=== PATIENT | female | born 1965 | race Caucasian/White ===

== ENCOUNTER 2019-05-18 08:00 | Inpatient (IN) ==
--- NOTE | 2019-04-15 09:07 | ANES ---
Anesthesia Pre Procedure Eval HOME MEDICATIONS Calcium Crb,Cit/D3/Min34/Hermila [Citracal + Bone Density Tablet] 1 ea PO DAILY 05/15/17 [Last Taken Unknown] Cholecalciferol (Vitamin D3) [Vitamin D3] 1,000 unit PO DAILY 05/15/17 [Last Taken Unknown] Citalopram Hydrobromide [Celexa] 20 mg PO DAILY 05/15/17 [Last Taken Unknown] Clonidine HCl [Catapres] 0.1 mg PO DAILY 05/15/17 [Last Taken Unknown] Fexofenadine/Pseudoephedrine [Nicolle-D 24 Hour Tablet] 1 ea PO DAILY 05/15/17 [Last Taken Unknown] Levothyroxine Sodium [Synthroid] 175 mcg PO DAILY 05/15/17 [Last Taken Unknown] Liothyronine Sodium 20 mcg PO DAILY 05/15/17 [Last Taken Unknown] Multivitamins [Multivitamin Genevieve] 1 cap PO DAILY 05/15/17 [Last Taken Unknown] Allergies/Adverse Reactions: Allergies Allergy/AdvReac Type Severity Reaction Status Date / Time house dust Allergy sinus Verified 04/15/19 08:32 drainage Influenza Virus Vaccines Allergy face Verified 04/15/19 08:32 swelling pollen extracts Allergy sinus Verified 04/15/19 08:32 drainage thimerosal Allergy face Verified 04/15/19 08:32 swelling - Planned Procedure Planned Procedure: LT Arthroplasty Total Knee Medication List Reviewed:: Yes Allergies Verified: Yes Medical History (Last Reviewed 04/15/19 @ 09:06 by Nathan Cunningham CRNA) Osteoarthritis of knee (Chronic) Hypertension Onset Date: Unknown Osteoporosis Onset Date: Unknown Seasonal allergies Onset Date: Unknown Thyroid disease Onset Date: Unknown Vitamin D deficiency Onset Date: Unknown Surgical History (Last Reviewed 04/15/19 @ 09:06 by Nathan Cunningham CRNA) Hx jeremy AGUIRRE History of cholecystectomy Onset Date: 1985 open History of colonoscopy Onset Date: 05/31/17 Tommeraasen-diverticulum of sigmoid colon. Recheck 10 yrs. History of endometrial ablation Onset Date: 2005 History of gastric surgery Onset Date: 2014 vertical gastric sleeve History of shoulder surgery Onset Date: Unknown left History of thyroidectomy Onset Date: 2007 full Family History (Last Reviewed 04/15/19 @ 09:06 by Nathan Cunningham CRNA) Mother Alive and well Father , age 78 Cancer lung mesothelioma Brother Alive and well Brother Alive and well - Family Anesthesia History Family History:: no untoward family reactions to anesthesia, no familial bleeding tendencies, no family history of clotting disorders, no family history of premature - Airway/Neck/Teeth Within Normal Limits:: Yes Teeth Condition: intact Mallampatti Score: 1 Thyromental (T-M) distance: > 6 cm Mandibulo Hyoid distance: > 3 cm - Respiratory Smoking Status: Never smoker Discussed smoking cessation including day of surgery: No Sleep Apnea currently treated: No Sleep Apnea by current assessment: No Discussed Risks/Treatment of LINA: No - Cardiovascular Tolerate Activity: Good Heart Sounds: S1 & S2, Regular - Anesthesia Assessment and Plan ASA Class: PS, II Anesthesia Type Plan: Block - Ultrasound guided adductor canal nerve block for postop analgesia, Spinal
[~2019-05-18 08:00] MED LIST: MORPHINE SULFATE 15 MG TABLET.SA PO PRN; ROPIVACAINE HCL/PF 100 MG, EPINEPHrine 0.2 MG, KETOROLAC TROMETHAMINE 30 MG in NORMAL S... IJ PRN; TRANEXAMIC ACID 1,000 MG in NORMAL SALINE 100 ML IV PRN; ceFAZolin SODIUM 1 GM VIAL IV PRN
[2019-05-18] MEDS ORDERED: ceFAZolin SODIUM 1 GM VIAL ONE (08:53)
[2019-05-18] MEDS: RINGER'S SOLUTION,LACTATED 1,000 ML IV PRN ×3 (09:11→11:50)
[2019-05-18] MEDS ORDERED: BUPIVACAINE HCL/PF 10 ML VIAL ONE (09:18)
[2019-05-18] MEDS ORDERED: MIDAZOLAM HCL/PF 5 MG/ML VIAL ONE (09:18)
[2019-05-18] MEDS ORDERED: BUPIVACAINE HCL/EPINEPHRINE 50 ML VIAL IJ ONE (09:19)
[2019-05-18] MEDS ORDERED: PROPOFOL VIAL IV ONE (09:19)
[2019-05-18] MEDS ORDERED: NORMAL SALINE 20 ML VIAL ONE (09:26)
--- NOTE | 2019-05-18 11:37 | ANES ---
Anesthesia Procedure Note Procedure Note: ANESTHESIA PROCEDURE NOTE Date of procedure: 05/18/2019. Time of procedure: 1035. Performed by: Sylvain Mace CRNA Tin Assorter: Mandie Franklin RN . Preprocedure diagnosis: Left knee DJD. Post procedure diagnosis: Same. Procedure: Postoperative analgesia following left total knee arthroplasty Indications: Postoperative analgesia. Findings: Patient was brought to operating room #2, sedated and given a spinal anesthetic. Patient was then placed in a supine position. Patient's left inner thigh was prepped with ChloraPrep. Ultrasound was utilized to identify the adductor canal. 20-gauge 4 inch regional block needle was advanced under ultrasound guidance until tip of needle was positioned in the adductor canal. Tip of needle just distal to fascial layer of the sartorius muscle. 25 mL of 0.25% Marcaine with epinephrine 1-200,000 was injected with adequate spread of local anesthesia noted. Regional block needle was removed intact. EBL: Minimal. Fluids: N/A. Specimen: N/A. Post procedure condition: The patient tolerated the procedure well. No complications were noted. Thank you for this consultation Sylvain Mace CRNA
[2019-05-18] MEDS ORDERED: ZOLPIDEM TARTRATE 5 MG TABLET PO PRN (12:34)
[2019-05-18] MEDS ORDERED: diphenhydrAMINE HCL 50 MG/ML VIAL IV PRN (12:34)
[2019-05-18] MEDS ORDERED: MAG HYDROX/ALUMINUM HYD/SIMETH 30 ML UDC PO PRN (12:34)
[2019-05-18] MEDS ORDERED: ACETAMINOPHEN 500 MG TABLET PO PRN (12:34)
[2019-05-18] MEDS ORDERED: MAGNESIUM HYDROXIDE 30 ML UDC PO PRN (12:34)
--- NOTE | 2019-05-18 12:34 | OR ---
Operative Report - Dictated Report Narrative: Date: 05/18/2019 Preoperative diagnosis: Left knee degenerative joint disease. Postoperative diagnosis: Left knee degenerative joint disease. Procedure: Left total knee arthroplasty. Surgeon: Tano Bernal M.D. Lead Application Architect: Ricky Mills PA-C (provided and essential set of skilled, educated hands that assisted with transfer, positioning, prepping, draping, manipulation, retraction, placement of jigs, injection, insertion of implants, irrigation, closure wounds, and dressings all of which could not be performed by the available surgical crew) Anesthesia: Spinal with regional block and local periarticular joint injection. Complications: None Specimens: Bone. Estimated blood loss: Minimal. Tourniquet time: 95 Minutes at 300 millimeters of mercury. Retained implants: Depuy Attune size 6 narrow left lugged cemented posterior stabilized femoral component. Size 5 fixed-bearing cemented tibial platform. 6 by 5 millimeter posterior stabilized cross-linked tibial insert. 38 millimeter medialized patella button. Indications: Mrs. Thakkar is a 54-year-old female who has had longstanding bilateral knee pain and arthrosis. She is here today for first of 2 total knee arthroplasties on the left today. This patient was followed in my clinic for period of time with significant complaints of left knee pain consistent with arthritic changes. She had failed conservative measures including, but not limited to, activity modification, passage of time, medications, and other conservative measures. Patient wished to proceed with surgical treatment. The risks, benefits, and alternatives were discussed in clinic. The risks of , blood clots, bleeding, infection, nerve/tendon blood vessel/ injury, malposition of components, intraoperative fracture, postoperative limited range of motion, persistent pain, failure of components, and need for additional procedures. Patient wished to proceed consent was obtained after answering all questions. Procedure: After marking the correct extremity on the floor, the patient was taken to the operating room. A timeout was performed. IV antibiotics consisting of Ancef were administered prior to the procedure. A regional followed by spinal anesthetic was induced by anesthesia, per my request, on the operative table with all bony prominences well-padded. Torres catheter was placed, and a bump was placed under the operative side buttock. SCDs and JUAREZ hose were utilized on the nonoperative leg. A well-padded tourniquet was applied to the operative thigh. The operative leg was then pre-scrubbed with alcohol, prepped, and draped in a standard sterile fashion. After exsanguinating the extremity with an Esmarch bandage, the tourniquet was inflated. After marking out the anterior knee for standard incision centered over the patella, the skin was incised and dissected down to the joint retinaculum. The joint retinaculum was marked out as well as the horizontal axis of the patella, and a standard medial parapatellar arthrotomy was then made. The most proximal aspect of the quadriceps tendon and the patella tendon insertion were protected from release. A partial synovectomy was performed as well as a resection of the infrapatellar fat pad. The distal femoral fat pad proximal to the trochlea was also resected using cautery. The soft tissues were elevated off the medial aspect of the proximal tibia using a Peacock elevator ensuring that we did not transect the medial collateral ligament. Upon initial evaluation range of motion was approximately 10 degrees to 110 degrees of flexion. There were signs of advanced arthrosis in the medial, lateral, and patellofemoral joint spaces. There were large marginal osteophytes which were removed with a rongeur. The knee was hyperflexed and the patella was tucked laterally. Protecting the surrounding soft tissues with Homans, an entry drill was placed down the femoral canal using Whitesides line for guidance into the entry point. The intramedullary femoral alignment gonzalo was utilized in order to cut the distal femur in 5 degrees of valgus resecting 10 millimeters of bone. Next the distal femur was sized to a size 6. A posterior referencing guide was utilized to place the distal femoral cutting block in 3 degrees of external rotation. This was pinned into place. The rotation was confirmed both visually and based on anatomic landmarks. The 4 in 1 cutting jig of the appropriate size was utilized in order to make all bony cuts. The mar wing was used to ensure no notching. Retractors were utilized in order to protect surrounding soft tissues. This cut did not result in any excessive notching. We then cut the box centered over the distal femur. This allowed for resection of the anterior and posterior cruciate ligaments. I then turned my attention to the preparation of the tibia. Using an extra medullary tibial alignment gonzalo, 5 millimeters of bone was resected off the medial articular surface. This was made perpendicular to the mechanical axis of the joint with the alignment gonzalo centered over the ankle mortise. The alignment gonzalo was checked and was noted to be parallel to the mechanical axis, centered over the medial one third of the tibial tubercle, paralleling the anterior surface of the tibia. We then turned our attention to the remaining meniscus and soft tissues. These were removed while protecting the surrounding ligaments and soft tissues. The marginal osteophytes off the anterior, posterior, medial, lateral aspects of the femur and tibia were removed. The tibia was sized out to a size 5. Next the tibia was drilled and punched in an externally rotated position. Next the trial femur and a series of tibial inserts were utilized in order to allow for full extension and maximal flexion. It was found that a 5 millimeter insert gave the best range of motion and stability at multiple flexion points as well as at full extension there was less than 2 mm of gapping both medially and laterally. There is minimal anterior translation with the knee at 90 degrees of flexion and no signs of being able to dislocate the knee. The patella was then prepared. The initial thickness was 21 millimeters. This was reamed down to 12 millimeters parallel to the anterior surface of the patella. It was sized out to a size 38 medialized patella button. This was then drilled and trialed. Without any medial restraint the patella tracked appropriately and did not sublux or dislocate. At this point, it was felt these were the appropriate sized implants, and all trials were removed. The standard periarticular joint injection consisting of ropivacaine, Toradol, and epinephrine were injected into the periarticular joint tissues. The bony surfaces were thoroughly irrigated with a pulsatile-suction saline irrigation device. A bone plug from the prior resected anterior chamfer cut was placed into the drill hole at the distal femur. The bony surfaces were then dried in preparation for placement of the implants. The cement was vacuum mixed per the deputy county attorney's instructions. The cement was placed on the dry bony surfaces and posterior aspect of the implants. The implants were impacted into place, removing all extruded cement. At this point anesthesia administered tranexamic acid per protocol intravenously. The knee was placed in extension with axial loading with the trial insert while the cement cured. Once the cement cured, all remaining extruded cement was removed. The knee was placed through a range of motion with the trial insert to ensure appropriate range of motion and stability. Final range of motion was approximately 0 to 120 degrees. The knee was again thoroughly irrigated with pulsatile saline lavage. The final polyethylene insert was then impacted into place ensuring no retained soft tissues. The remaining periarticular joint injection was injected. A medium Hemovac drain was placed exiting superior laterally. The knee was then placed over a triangle and the arthrotomy was closed with interrupted #1 Vicryl after thoroughly irrigating the joint. The deep and subcutaneous tissues were closed with interrupted 0 and 3-0 Vicryl respectively. Skin was closed with a running subcutaneous 3-0 Monocryl and Prineo Dermabond dressing. 4 x 4's, Sof-Rol, and a full leg Wilton wrap were applied. All sponge, needle, blade, and instrument counts were correct prior to closing the wounds. Postoperative condition: The patient was awoken and transferred to the postanesthesia care unit in stable condition. Plan is to be admitted to the inpatient medical/surgical floor postoperatively for 24 hours of IV antibiotics, physical therapy, occupational therapy, and medical comanagement. Patient will be weightbearing as tolerated with range of motion as tolerated. DVT prophylaxis will be with SCDs, JUAREZ hose, and pharmacological anticoagulation. Anticipated hospital stay is approximately 1-3 days.
[2019-05-18] MEDS ORDERED: DEXTROSE 5%-LACTATED RINGERS 1,000 ML IV PRN (12:35)
--- NOTE | 2019-05-18 12:49 | ANES ---
Post Anesthesia Discharge - Transfer of Care Transfer of Care handoff given to nurse: Yes - Discharge from PACU Discharge from PACU when meets criteria: Yes - Awake and comfortable.
--- NOTE | 2019-05-18 13:08 | ANES ---
Post Anesthesia Assessment - Vital Signs Vitals: Last Vital Signs Temp 36.8 C 05/18/19 13:00 Pulse 74 05/18/19 13:00 Resp 18 05/18/19 13:00 BP 118/62 05/18/19 13:00 Pulse Ox 99 05/18/19 13:00 Airway Patency: Normal - Mental Status Level Of Consciousness: Awake, Alert, Appropriate - Pain Level Pain Score: 0 - N/V Assessment Nausea/Vomiting Presence: None Dehydration:: No
[2019-05-18] MEDS: ONDANSETRON HCL/PF 2 MG/ML VIAL IV PRN ×2 (13:30→17:25)
[2019-05-18] MEDS: KETOROLAC TROMETHAMINE 15 MG/ML VIAL IV SCH ×2 (14:22→19:03)
[2019-05-18] MEDS: CEFAZOLIN SODIUM/DEXTROSE,ISO 1 GM/50 ML BAG IV SCH ×2 (14:23→20:48)
[2019-05-18] MEDS: oxyCODONE HCL/ACETAMINOPHEN 1 TAB TABLET PO PRN ×2 (16:32→20:47)
[2019-05-18] MEDS: SENNOSIDES/DOCUSATE SODIUM 1 TAB TABLET PO SCH (21:35)
[2019-05-18] MEDS: MORPHINE SULFATE 15 MG TABLET.SA PO SCH (21:35)
[2019-05-19] MEDS: KETOROLAC TROMETHAMINE 15 MG/ML VIAL IV SCH ×4 (01:03→17:49)
[2019-05-19] MEDS: oxyCODONE HCL/ACETAMINOPHEN 1 TAB TABLET PO PRN ×3 (01:03→09:24)
[2019-05-19] MEDS: ONDANSETRON HCL/PF 2 MG/ML VIAL IV PRN ×3 (01:11→09:24)
[2019-05-19] MEDS: CEFAZOLIN SODIUM/DEXTROSE,ISO 1 GM/50 ML BAG IV SCH (02:16)
[2019-05-19 06:30] LABS: Hematocrit 31.7 % (37.0-47.0); Hemoglobin 10.4 gm/dL (12.5-16.0); Mean Cell Volume 90.3 fl (78-100); Mean Corpuscular Hemoglobin 29.6 pg (27-31); Mean Corpuscular Hgb Conc 32.8 g/dl (32-36); Mean Platelet Volume 8.8 fl (8-12.5); Platelet Count 227 K/mm3 (150-450); Red Blood Count 3.51 M/mm3 (4.2-5.4); Red Cell Distribution Width 11.4 % (11.5-14.0); White Blood Count 6.4 K/mm3 (4.0-10.5)
[2019-05-19 06:37] LABS: Anion Gap 11.9 mmol/L (6.8-13.8); Calcium * 8.4 mg/dL (7.9-10.9); Carbon Dioxide 27.5 mmol/L (24-32.6); Potassium 3.4 mmol/L (3.4-4.6)
[2019-05-19] MEDS: LIOTHYRONINE SODIUM 5 MCG TABLET PO SCH ×3 (07:15→17:04)
[2019-05-19] MEDS: LEVOTHYROXINE SODIUM 175 MCG TABLET PO SCH (07:15)
--- NOTE | 2019-05-19 08:14 | PN ---
Subjective - Date and Time Seen Date: 05/19/19 Time: 08:11 Subjective Narrative: Subjective: Reports tolerable pain. She has not used her ice machine as it has not been cleared by materials yet. Was able to get around the room with therapy. Pain is well-controlled. Voiding without any complications. Tolerating by mouth intake. Denies any nausea or vomiting. Denies calf pain. Slept okay. Physical exam: Alert and oriented to person, place and time Left lower extremity: Palpable dorsalis pedis pulse. Sensation grossly intact to light touch. Dressings clean and dry. Able to flex and extend ankle and toes. No excessive drainage. Calf and thigh are soft and nontender. Assessment: Postop day 1 status post left total knee arthroplasty. Plan: Due to the need for pain control, post-operative limited mobility, protection of the surgical site and joint, monitoring of the wound, and the management of chronic medical conditions, she requires continued inpatient care. Continue with physical and occupational therapy weightbearing as tolerated. Continue with anticoagulation. 24 hours postoperative prophylactic antibiotics. Pain control with goal to rely on oral medications. Continue bowel regimen. Will need 6 weeks with walker or assitive device to protect joint while ambulating during the recovery process. Discharge planning. Discontinue drain and continue Torres catheter as she is undergoing surgical intervention tomorrow. She will be n.p.o. after midnight. Plan is for right total knee arthroplasty tomorrow. Objective - Vitals Vitals: Last Vital Signs Temp 36.4 C 05/19/19 06:00 Pulse 83 05/19/19 06:00 Resp 16 05/19/19 06:00 BP 122/87 05/19/19 06:00 Pulse Ox 96 05/19/19 06:00 - Abnormal Lab Findings Abnormal Lab Findings: Abnormal Lab Results 05/19/19 05/19/19 Range/Units 06:10 06:10 RBC 3.51 L (4.2-5.4) M/mm3 Hgb 10.4 L (12.5-16.0) gm/dL Hct 31.7 L (37.0-47.0) % RDW 11.4 L (11.5-14.0) % Random Glucose 117 H (70-110) mg/dL Cauti Physician Documentation - Urinary Catheter Management Urethral (Torres) Urethral Indwelling: Yes Reason for Continuing Indwelling Catheter: Surgical Procedure Date of Insertion: 05/18/19 Time of Insertion: 10:50 Assessment/Plan - Problems/Diagnosis (1) Status post total left knee replacement Problem: Acute (2) Acute blood loss anemia Problem: Acute (3) Hypertension Problem: Chronic Qualifiers: Hypertension type: essential hypertension Qualified Code(s): I10 - Essential (primary) hypertension (4) Hypothyroid Problem: Chronic Qualifiers: Hypothyroidism type: postoperative Qualified Code(s): E89.0 - Postprocedural hypothyroidism
[2019-05-19] MEDS ORDERED: ceFAZolin SODIUM 1 GM VIAL IV PRN (08:15)
[2019-05-19] MEDS: CITALOPRAM HYDROBROMIDE 20 MG TABLET PO SCH ×3 (09:08→20:31)
[2019-05-19] MEDS: CALCIUM CARBONATE/VITAMIN D3 1 TAB TABLET PO SCH (09:08)
[2019-05-19] MEDS: CLONIDINE HCL 0.1 MG TABLET PO SCH ×3 (09:08→20:31)
[2019-05-19] MEDS: MORPHINE SULFATE 15 MG TABLET.SA PO SCH ×2 (09:09→20:31)
[2019-05-19] MEDS: CHOLECALCIFEROL 1,000 UNIT CAPSULE PO SCH (09:09)
[2019-05-19] MEDS: MULTIVITAMINS 1 CAP CAPSULE PO SCH (09:24)
[2019-05-19] MEDS ORDERED: ENOXAPARIN SODIUM 40 MG/0.4 ML SYRG SC SCH (11:35)
[2019-05-19] MEDS: HYDROcodone/ACETAMINOPHEN 1 EACH TABLET PO PRN ×3 (13:45→22:04)
[2019-05-19] MEDS: SENNOSIDES/DOCUSATE SODIUM 1 TAB TABLET PO SCH (20:31)
[2019-05-20] MEDS: KETOROLAC TROMETHAMINE 15 MG/ML VIAL IV SCH ×2 (00:17→06:35)
[2019-05-20] MEDS: HYDROcodone/ACETAMINOPHEN 1 EACH TABLET PO PRN ×3 (02:28→20:17)
[2019-05-20] MEDS ORDERED: TRANEXAMIC ACID 1,000 MG in NORMAL SALINE 100 ML IV PRN (06:00)
[2019-05-20] MEDS ORDERED: ROPIVACAINE HCL/PF 100 MG, EPINEPHrine 0.2 MG, KETOROLAC TROMETHAMINE 30 MG in NORMAL S... IJ PRN (06:00)
[2019-05-20] MEDS ORDERED: ceFAZolin SODIUM 1 GM VIAL IV PRN (06:00)
[2019-05-20] MEDS ORDERED: MORPHINE SULFATE 15 MG TABLET.SA PO PRN (06:00)
--- NOTE | 2019-05-20 06:33 | ANES ---
Anesthesia Pre Procedure Eval Vitals/Labs: Last Vital Signs Temp 37.2 C 05/20/19 05:00 Pulse 84 05/20/19 05:00 Resp 16 05/20/19 05:00 BP 119/73 05/20/19 05:00 Pulse Ox 98 05/20/19 05:00 HOME MEDICATIONS Calcium Crb,Cit/D3/Min34/Hermila [Citracal + Bone Density Tablet] 1 ea PO DAILY 05/15/17 [Last Taken Unknown] Cholecalciferol (Vitamin D3) [Vitamin D3] 1,000 unit PO DAILY 05/15/17 [Last Taken Unknown] Citalopram Hydrobromide [Celexa] 20 mg PO DAILY 05/15/17 [Last Taken Unknown] Clonidine HCl [Catapres] 0.1 mg PO DAILY 05/15/17 [Last Taken Unknown] Fexofenadine/Pseudoephedrine [Nicolle-D 24 Hour Tablet] 1 ea PO DAILY 05/15/17 [Last Taken Unknown] Levothyroxine Sodium [Synthroid] 175 mcg PO DAILY 05/15/17 [Last Taken Unknown] Liothyronine Sodium 20 mcg PO DAILY 05/15/17 [Last Taken Unknown] Multivitamins [Multivitamin Genevieve] 1 cap PO DAILY 05/15/17 [Last Taken Unknown] Allergies/Adverse Reactions: Allergies Allergy/AdvReac Type Severity Reaction Status Date / Time house dust Allergy sinus Verified 05/18/19 08:44 drainage Influenza Virus Vaccines Allergy face Verified 05/18/19 08:44 swelling pollen extracts Allergy sinus Verified 05/18/19 08:44 drainage thimerosal Allergy face Verified 05/18/19 08:44 swelling - Planned Procedure Planned Procedure: LTK on 05/18/19 and RTK on 05/20/19 Medication List Reviewed:: Yes Allergies Verified: Yes Medical History (Last Reviewed 05/20/19 @ 06:31 by Noman Mace CRNA) Osteoarthritis of knee (Chronic) Hypertension Onset Date: Unknown Osteoporosis Onset Date: Unknown Seasonal allergies Onset Date: Unknown Thyroid disease Onset Date: Unknown Vitamin D deficiency Onset Date: Unknown Surgical History (Last Reviewed 05/20/19 @ 06:31 by Noman Mace CRNA) History of cholecystectomy Onset Date: 1985 open History of colonoscopy Onset Date: 05/31/17 Tommeraasen-diverticulum of sigmoid colon. Recheck 10 yrs. History of endometrial ablation Onset Date: 2005 History of gastric surgery Onset Date: 2014 vertical gastric sleeve History of shoulder surgery Onset Date: Unknown left History of thyroidectomy Onset Date: 2007 full Hx of CARLA Family History (Last Reviewed 05/20/19 @ 06:31 by Noman Mace CRNA) Mother Alive and well Father , age 78 Cancer lung mesothelioma Brother Alive and well Brother Alive and well - Family Anesthesia History Family History:: no untoward family reactions to anesthesia - Airway/Neck/Teeth Within Normal Limits:: Yes Teeth Condition: intact Neck Exam: full range of motion Mallampatti Score: 2 Thyromental (T-M) distance: > 6 cm Mandibulo Hyoid distance: > 3 cm - Respiratory Respiratory Physical: lungs clear Smoking Status: Never smoker Sleep Apnea currently treated: No Sleep Apnea by current assessment: No - Cardiovascular Cardiac History: hypertension Tolerate Activity: Good Heart Sounds: S1 & S2, Regular - Gastrointestinal NPO since: MN - Anesthesia Assessment and Plan ASA Class: PS, II Anesthesia Type Plan: Spinal - adductor canal block
[2019-05-20] MEDS: RINGER'S SOLUTION,LACTATED 1,000 ML IV PRN ×2 (06:35→09:00)
[2019-05-20] MEDS: LEVOTHYROXINE SODIUM 175 MCG TABLET PO SCH (06:36)
[2019-05-20] MEDS ORDERED: BUPIVACAINE HCL/EPINEPHRINE 50 ML VIAL IJ ONE (06:37)
[2019-05-20] MEDS ORDERED: LIDOCAINE HCL 20 ML VIAL ONE (06:37)
[2019-05-20] MEDS ORDERED: PROPOFOL VIAL IV ONE (06:38)
[2019-05-20] MEDS ORDERED: MIDAZOLAM HCL/PF 5 MG/ML VIAL ONE (06:38)
[2019-05-20] MEDS ORDERED: BUPIVACAINE HCL/PF 10 ML VIAL ONE (06:38)
[2019-05-20] MEDS: LIOTHYRONINE SODIUM 5 MCG TABLET PO SCH ×2 (06:39→17:08)
[2019-05-20] MEDS ORDERED: ISOPROPYL ALCOHOL 480 APPL BTL MC ONE (07:15)
[2019-05-20] MEDS ORDERED: ceFAZolin SODIUM 1 GM VIAL ONE (07:15)
[2019-05-20] MEDS: MORPHINE SULFATE 15 MG TABLET.SA PO SCH ×2 (09:12→21:29)
[2019-05-20] MEDS: MULTIVITAMINS 1 CAP CAPSULE PO SCH (09:12)
[2019-05-20] MEDS: CHOLECALCIFEROL 1,000 UNIT CAPSULE PO SCH (09:12)
[2019-05-20] MEDS: CALCIUM CARBONATE/VITAMIN D3 1 TAB TABLET PO SCH (09:12)
[2019-05-20] MEDS ORDERED: DEXTROSE 5%-LACTATED RINGERS 1,000 ML IV PRN (10:05)
--- NOTE | 2019-05-20 10:05 | OR ---
Operative Report - Dictated Report Narrative: Date: 05/20/2019 Preoperative diagnosis: Right knee degenerative joint disease. Postoperative diagnosis: Right knee degenerative joint disease. Procedure: Right total knee arthroplasty. Surgeon: Tano Bernal M.D. Magneto Repairer: Ricky Mills PA-C (provided and essential set of skilled, educated hands that assisted with transfer, positioning, prepping, draping, manipulation, retraction, placement of jigs, injection, insertion of implants, irrigation, closure wounds, and dressings all of which could not be performed by the available surgical crew) Anesthesia: Spinal with regional block and local periarticular joint injection. Complications: None Specimens: Bone. Estimated blood loss: Minimal. Tourniquet time: 105 Minutes at 300 millimeters of mercury. Retained implants: Depuy Attune size 5 right lugged cemented posterior stabilized femoral component. Size 5 fixed-bearing cemented tibial platform. 5 by 6 millimeter posterior stabilized cross-linked tibial insert. 38 millimeter medialized patella button. Indications: Mrs. Thakkar is a 54-year-old female who has had longstanding right knee pain and arthrosis. This patient was followed in my clinic for period of time with significant complaints of right knee pain consistent with arthritic changes. She had failed conservative measures including, but not limited to, activity modification, passage of time, medications, and other conservative measures. Patient wished to proceed with surgical treatment. The risks, benefits, and alternatives were discussed in clinic. The risks of , blood clots, bleeding, infection, nerve/tendon blood vessel/ injury, malposition of components, intraoperative fracture, postoperative limited range of motion, persistent pain, failure of components, and need for additional procedures. Patient wished to proceed consent was obtained after answering all questions. Procedure: After marking the correct extremity on the floor, the patient was taken to the operating room. A timeout was performed. IV antibiotics consisting of Ancef were administered prior to the procedure. A regional followed by spinal anesthetic was induced by anesthesia, per my request, on the operative table with all bony prominences well-padded. Torres catheter was already in place, and a bump was placed under the operative side buttock. SCDs and JUAREZ hose were utilized on the nonoperative leg. A well-padded tourniquet was applied to the operative thigh. The operative leg was then pre-scrubbed with alcohol, prepped, and draped in a standard sterile fashion. After exsanguinating the extremity with an Esmarch bandage, the tourniquet was inflated. After marking out the anterior knee for standard incision centered over the patella, the skin was incised and dissected down to the joint retinaculum. The joint retinaculum was marked out as well as the horizontal axis of the patella, and a standard medial parapatellar arthrotomy was then made. The most proximal aspect of the quadriceps tendon and the patella tendon insertion were protected from release. A partial synovectomy was performed as well as a resection of the infrapatellar fat pad. The distal femoral fat pad proximal to the trochlea was also resected using cautery. The soft tissues were elevated off the medial aspect of the proximal tibia using a Peacock elevator ensuring that we did not transect the medial collateral ligament. Upon initial evaluation range of motion was approximately 5 degrees to 120 degrees of flexion. There were signs of advanced arthrosis in the medial and patellofemoral greater than lateral joint spaces. There were large marginal osteophytes which were removed with a rongeur. The knee was hyperflexed and the patella was tucked laterally. Protecting the surrounding soft tissues with Homans, an entry drill was placed down the femoral canal using Whitesides line for guidance into the entry point. The intramedullary femoral alignment gonzalo was utilized in order to cut the distal femur in 5 degrees of valgus resecting 10 millimeters of bone. Next the distal femur was sized to a size 5. A posterior referencing guide was utilized to place the distal femoral cutting block in 3 degrees of external rotation. This was pinned into place. The rotation was confirmed both visually and based on anatomic landmarks. The 4 in 1 cutting jig of the appropriate size was utilized in order to make all bony cuts. The mar wing was used to ensure no notching. Retractors were utilized in order to protect surrounding soft tissues. This cut did not result in any excessive notching. We then cut the box centered over the distal femur. This allowed for resection of the anterior and posterior cruciate ligaments. I then turned my attention to the preparation of the tibia. Using an extra medullary tibial alignment gonzalo, 4 millimeters of bone was resected off the medial articular surface. This was made perpendicular to the mechanical axis of the joint with the alignment gonzalo centered over the ankle mortise. The alignment gonzalo was checked and was noted to be parallel to the mechanical axis, centered over the medial one third of the tibial tubercle, paralleling the anterior surface of the tibia. We then turned our attention to the remaining meniscus and soft tissues. These were removed while protecting the surrounding ligaments and soft tissues. The marginal osteophytes off the anterior, posterior, medial, lateral aspects of the femur and tibia were removed. The tibia was sized out to a size 5. Next the tibia was drilled and punched in an externally rotated position. Next the trial femur and a series of tibial inserts were utilized in order to allow for full extension and maximal flexion. It was found that a 6 millimeter insert gave the best range of motion and stability at multiple flexion points as well as at full extension there was less than 2 mm of gapping both medially and laterally. There is minimal anterior translation with the knee at 90 degrees of flexion and no signs of being able to dislocate the knee. The patella was then prepared. The initial thickness was 22 millimeters. This was reamed down to 12 millimeters parallel to the anterior surface of the patella. It was sized out to a size 38 medialized patella button. This was then drilled and trialed. Without any medial restraint the patella tracked appropriately and did not sublux or dislocate. At this point, it was felt these were the appropriate sized implants, and all trials were removed. The standard periarticular joint injection consisting of ropivacaine, Toradol, and epinephrine were injected into the periarticular joint tissues. The bony surfaces were thoroughly irrigated with a pulsatile-suction saline irrigation device. A bone plug from the prior resected anterior chamfer cut was placed into the drill hole at the distal femur. The bony surfaces were then dried in preparation for placement of the implants. The cement was vacuum mixed per the preschool substitute teacher's instructions. The cement was placed on the dry bony surfaces and posterior aspect of the implants. The implants were impacted into place, removing all extruded cement. At this point anesthesia administered tranexamic acid per protocol intravenously. The knee was placed in extension with axial loading with the trial insert while the cement cured. Once the cement cured, all remaining extruded cement was removed. The knee was placed through a range of motion with the trial insert to ensure appropriate range of motion and stability. Final range of motion was approximately 0 to 120 degrees. The knee was again thoroughly irrigated with pulsatile saline lavage. The final polyethylene insert was then impacted into place ensuring no retained soft tissues. The remaining periarticular joint injection was injected. A medium Hemovac drain was placed exiting superior laterally. The knee was then placed over a triangle and the arthrotomy was closed with interrupted #1 Vicryl after thoroughly irrigating the joint. The deep and subcutaneous tissues were closed with interrupted 0 and 3-0 Vicryl respectively. Skin was closed with a running subcutaneous 3-0 Monocryl and Prineo Dermabond dressing. 4 x 4's, Sof-Rol, and a full leg Wilton wrap were applied. All sponge, needle, blade, and instrument counts were correct prior to closing the wounds. Postoperative condition: The patient was awoken and transferred to the postanesthesia care unit in stable condition. Plan is to be admitted to the inpatient medical/surgical floor postoperatively for 24 hours of IV antibiotics, physical therapy, occupational therapy, and medical comanagement. Patient will be weightbearing as tolerated with range of motion as tolerated. DVT prophylaxis will be with SCDs, JUAREZ hose, and pharmacological anticoagulation. Anticipated hospital stay is approximately 1-3 days.
--- NOTE | 2019-05-20 10:52 | ANES ---
Post Anesthesia Discharge - Transfer of Care Transfer of Care handoff given to nurse: Yes - Discharge from PACU Discharge from PACU when meets criteria: Yes
--- NOTE | 2019-05-20 10:52 | ANES ---
Post Anesthesia Assessment - Vital Signs Vitals: Last Vital Signs Temp 36.9 C 05/20/19 10:39 Pulse 94 05/20/19 10:39 Resp 16 05/20/19 10:39 BP 113/62 05/20/19 10:39 Pulse Ox 96 05/20/19 10:39 Airway Patency: Normal - Mental Status Level Of Consciousness: Awake - Pain Level Pain Score: 0 - N/V Assessment Nausea/Vomiting Presence: None Dehydration:: No
--- NOTE | 2019-05-20 10:56 | ANES ---
Anesthesia Procedure Note Procedure Note: ANESTHESIA PROCEDURE NOTE Date of procedure: 05/20/2019. Time of procedure: 804. Performed by: Sylvain Mace CRNA Senior Insight Manager International: Lacey Hillman RN . Preprocedure diagnosis: Right knee DJD.. Post procedure diagnosis: Same. Procedure: Ultrasound-guided right adductor canal block Indications: Postoperative analgesia. Findings: Patient is brought to operating room #4, sedated, and given a spinal anesthetic. Patient was then placed in the supine position. Her right inner thigh was prepped with ChloraPrep. Ultrasound utilized to identify the adductor canal. A 20-gauge 4 inch regional block needle was advanced under ultrasound guidance the tip of the needle was placed distal to the fascial layer of the sartorius muscle. 25 mL of 0.25% Marcaine with epinephrine 1 200,000 was injected with adequate spread of local anesthesia noted. Regional block needle was removed intact. EBL: Minimal. Fluids: N/A. Specimen: N/A. Post procedure condition: The patient tolerated the procedure well. No complications were noted. Thank you for this consultation Sylvain Mace CRNA
[2019-05-20] MEDS: ceFAZolin SODIUM 1 GM in DEXTROSE 5 % IN WATER 100 ML IV SCH ×4 (12:06→19:08)
[2019-05-20] MEDS: ONDANSETRON HCL/PF 2 MG/ML VIAL IV PRN ×2 (13:14→19:16)
[2019-05-20] MEDS: MORPHINE SULFATE 2 MG/ML DISP.SYRIN IV PRN ×2 (19:08→19:23)
[2019-05-20] MEDS: CLONIDINE HCL 0.1 MG TABLET PO SCH (20:16)
[2019-05-20] MEDS: SENNOSIDES/DOCUSATE SODIUM 1 TAB TABLET PO SCH (20:17)
[2019-05-20] MEDS: CITALOPRAM HYDROBROMIDE 20 MG TABLET PO SCH (20:17)
[2019-05-21] MEDS: HYDROcodone/ACETAMINOPHEN 1 EACH TABLET PO PRN ×6 (00:17→21:09)
[2019-05-21] MEDS: ceFAZolin SODIUM 1 GM in DEXTROSE 5 % IN WATER 100 ML IV SCH ×2 (00:17)
[2019-05-21 06:30] LABS: Hematocrit 29.2 % (37.0-47.0); Hemoglobin 9.5 gm/dL (12.5-16.0); Mean Cell Volume 91.3 fl (78-100); Mean Corpuscular Hemoglobin 29.7 pg (27-31); Mean Corpuscular Hgb Conc 32.5 g/dl (32-36); Mean Platelet Volume 8.6 fl (8-12.5); Platelet Count 219 K/mm3 (150-450); Red Cell Distribution Width 11.4 % (11.5-14.0); White Blood Count 7.7 K/mm3 (4.0-10.5)
[2019-05-21 06:34] LABS: Anion Gap 9.7 mmol/L (6.8-13.8); BUN/Creatinine Ratio 11.3 (9.0-21.6); Calcium * 8.3 mg/dL (7.9-10.9); Carbon Dioxide 31.6 mmol/L (24-32.6); Estimated Creat Clear 106.5; Potassium 3.3 mmol/L (3.4-4.6)
[2019-05-21] MEDS: LEVOTHYROXINE SODIUM 175 MCG TABLET PO SCH (07:06)
[2019-05-21] MEDS: LIOTHYRONINE SODIUM 5 MCG TABLET PO SCH ×2 (07:07→16:55)
[2019-05-21] MEDS: ONDANSETRON HCL/PF 2 MG/ML VIAL IV PRN (08:06)
[2019-05-21] MEDS: MORPHINE SULFATE 2 MG/ML DISP.SYRIN IV PRN ×4 (09:24→20:23)
[2019-05-21] MEDS: ENOXAPARIN SODIUM 40 MG/0.4 ML SYRG SC SCH (10:08)
[2019-05-21] MEDS: CALCIUM CARBONATE/VITAMIN D3 1 TAB TABLET PO SCH (10:10)
[2019-05-21] MEDS: CHOLECALCIFEROL 1,000 UNIT CAPSULE PO SCH (10:10)
[2019-05-21] MEDS: MORPHINE SULFATE 15 MG TABLET.SA PO SCH ×2 (10:10→20:19)
[2019-05-21] MEDS: MULTIVITAMINS 1 CAP CAPSULE PO SCH (10:10)
--- NOTE | 2019-05-21 12:40 | PN ---
Subjective - Date and Time Seen Date: 05/21/19 Time: 07:45 Subjective Narrative: Subjective: Reports tolerable pain. Had some pain issues last night, improved this morning. She has not used her ice machine as it has not been cleared by materials yet. Voiding without any complications. Tolerating by mouth intake. Reports nausea or vomiting last PM. Denies calf pain. Slept okay. Physical exam: Alert and oriented to person, place and time Bilateral lower extremity: Palpable dorsalis pedis pulse. Sensation grossly intact to light touch. Dressings clean and dry. Able to flex and extend ankle and toes. No excessive drainage. Calf and thigh are soft and nontender. Assessment: Postop day 3 status post left total knee arthroplasty, POD 1 s/p right total knee. Plan: Due to the need for pain control, post-operative limited mobility, protection of the surgical site and joint, monitoring of the wound, and the management of chronic medical conditions, she requires continued inpatient care. Continue with physical and occupational therapy weightbearing as tolerated. Continue with anticoagulation. 24 hours postoperative prophylactic antibiotics. Pain control with goal to rely on oral medications. Continue bowel regimen. Will need 6 weeks with walker or assitive device to protect joint while ambulating during the recovery process. Discharge planning. Discontinue drain and Torres catheter . We discussed adjusting pain meds if needed if nausea worsens Objective - Vitals Vitals: Last Vital Signs Temp 37.3 C 05/21/19 08:00 Pulse 84 05/21/19 08:00 Resp 16 05/21/19 08:00 BP 133/71 05/21/19 08:00 Pulse Ox 95 05/21/19 00:37 - Abnormal Lab Findings Abnormal Lab Findings: Abnormal Lab Results 05/21/19 05/21/19 Range/Units 06:18 06:18 RBC 3.20 L (4.2-5.4) M/mm3 Hgb 9.5 L (12.5-16.0) gm/dL Hct 29.2 L (37.0-47.0) % RDW 11.4 L (11.5-14.0) % Potassium 3.3 L (3.4-4.6) mmol/L Random Glucose 128 H (70-110) mg/dL Cauti Physician Documentation - Urinary Catheter Management Urethral (Torres) Date of Insertion: 05/18/19 Time of Insertion: 10:50 Date of Removal: 05/21/19 Time of Removal: 10:53 Assessment/Plan - Problems/Diagnosis (1) Status post total left knee replacement Problem: Acute (2) Acute blood loss anemia Problem: Acute (3) Hypertension Problem: Chronic Qualifiers: Hypertension type: essential hypertension Qualified Code(s): I10 - Essential (primary) hypertension (4) Hypothyroid Problem: Chronic Qualifiers: Hypothyroidism type: postoperative Qualified Code(s): E89.0 - Postprocedural hypothyroidism (5) Status post total right knee replacement Problem: Acute
[2019-05-21] MEDS: SENNOSIDES/DOCUSATE SODIUM 1 TAB TABLET PO SCH (20:18)
[2019-05-21] MEDS: CITALOPRAM HYDROBROMIDE 20 MG TABLET PO SCH (20:18)
[2019-05-21] MEDS: CLONIDINE HCL 0.1 MG TABLET PO SCH (20:18)
[2019-05-22] MEDS: HYDROcodone/ACETAMINOPHEN 1 EACH TABLET PO PRN ×4 (01:17→13:59)
[2019-05-22] MEDS: LIOTHYRONINE SODIUM 5 MCG TABLET PO SCH (07:02)
[2019-05-22] MEDS: LEVOTHYROXINE SODIUM 175 MCG TABLET PO SCH (07:02)
[2019-05-22] MEDS: MORPHINE SULFATE 15 MG TABLET.SA PO SCH (09:01)
[2019-05-22] MEDS: CHOLECALCIFEROL 1,000 UNIT CAPSULE PO SCH (09:01)
[2019-05-22] MEDS: MULTIVITAMINS 1 CAP CAPSULE PO SCH (09:02)
[2019-05-22] MEDS: CALCIUM CARBONATE/VITAMIN D3 1 TAB TABLET PO SCH (09:02)
[2019-05-22] MEDS: ENOXAPARIN SODIUM 40 MG/0.4 ML SYRG SC SCH (09:03)
--- NOTE | 2019-05-22 09:11 | DS ---
(1) Status post total left knee replacement Problem: Acute (2) Acute blood loss anemia Problem: Acute (3) Hypertension Problem: Chronic Qualifiers: Hypertension type: essential hypertension Qualified Code(s): I10 - Essential (primary) hypertension (4) Hypothyroid Problem: Chronic Qualifiers: Hypothyroidism type: postoperative Qualified Code(s): E89.0 - Postprocedural hypothyroidism (5) Status post total right knee replacement Problem: Acute Date of Discharge:: 05/22/19 Hospital Course: Mrs. Thakkar was admitted to the floor after undergoing left total knee arthroplasty on May 18 and right total knee arthroplasty on May 20. Tolerated this well. Was admitted to the floor postoperatively for 24 hours of IV antibiotics, pain control, medical comanagement, and occupational and physical therapy. OT and PT were consulted to assist with activities of daily living and ambulation. Was made weightbearing as tolerated with range of motion as tolerated. Pain was initially controlled with IV regimen. This was transitioned to oral once tolerating a by mouth intake. Was resumed on home diet and medications. Had a Torres catheter inserted and the operating room which was discontinued on postoperative May 21. A drain was placed intraoperatively into the knee which was discontinued on postoperative day 1 left knee and similarly a drain was inserted in the right knee and discontinued on postop day 1 respectively. Lovenox SCD and JUAREZ hose were utilized for DVT prophylaxis. Vital signs remained stable to the hospital course. Serial labs were obtained which showed a final hemoglobin of 9.5 grams which was down from her preoperative hemoglobin of 13.7. BMP was reviewed and was stable. Physical examination throughout the hospital course showed an extremity that had sensation that was intact to light touch, palpable pulses, a benign wound, motor intact to the toes, ankle, and knee. Bilateral knee range of motion was approximately 5 degrees to 70 degrees. Once an oral pain regimen was tolerated and physical therapy goals were met, it was felt that they were stable for discharge to home. Instructions: Continue with weightbearing as tolerated and range of motion as tolerated. It is OK to shower on the wound if it is not draining. If you note any drainage or for comfort you can cover with dry gauze and tape. Change every 2-3 days as needed. Continue with physical therapy. Resume home diet. Report any fever over 101.5 Fahrenheit, uncontrolled pain, increased drainage, foul odor of drainage, new or increased calf pain or shortness of breath, or any other sign ificant complaints. A 325mg dialy aspirin will be started after finishing anticoagulation if not allergic. Continue with JUAREZ hose on the operative extremity until instructed otherwise. No driving until instructed otherwise. Follow up in approximately 10-14 days. Procedures Performed: see notes below List Procedures: Status post bilateral knee replacements Results and Findings: Lab Pending Results 05/19/19 06:10: WBC 6.4, RBC 3.51 L, Hgb 10.4 L, Hct 31.7 L, MCV 90.3, MCH 29.6, MCHC 32.8, RDW 11.4 L, Plt Count 227, MPV 8.8 05/19/19 06:10: Sodium 137, Plasma Sodium 137, Potassium 3.4, Chloride 101, Carbon Dioxide 27.5, Anion Gap 11.9, BUN 8, Creatinine 0.57, Est GFR (Non-Af Amer) 117, BUN/Creatinine Ratio 14.0, Random Glucose 117 H, Calcium 8.4 05/21/19 06:18: WBC 7.7 D, RBC 3.20 L, Hgb 9.5 L, Hct 29.2 L, MCV 91.3, MCH 29.7, MCHC 32.5, RDW 11.4 L, Plt Count 219, MPV 8.6 05/21/19 06:18: Sodium 139, Plasma Sodium 139, Potassium 3.3 L, Chloride 101, Carbon Dioxide 31.6, Anion Gap 9.7, BUN 6, Creatinine 0.53, Est GFR (Non-Af Amer) 127, BUN/Creatinine Ratio 11.3, Random Glucose 128 H, Calcium 8.3 Discharge Location: Home Disposition: Home self-care Condition: Good Discharge Activity: Activity as tolerated Discharge Diet: Low salt Referrals: Tali Rodríguez DO [Primary Care Provider] - Tano Bernal MD [Staff Physician] - 06/09/19 9:30 am Problem Oriented Discharge Instructions to Patient/Family: Total Knee Replacement, Care After, [id number] Additional Patient Instructions (free text): Physical Therapy at [facility] on SaturdayMay 24 at 1:00pm. Please fax PT order and demographics to [phone]. Follow up in the office with Dr. Bernal on SaturdayJune 08 at 9:30am. Prescriptions (Any new or edited meds): Morphine Sulfate [Ms Contin] 15 mg PO Q12H #14 tablet.sa HYDROcodone/ACETAMINOPHEN [Elbridge 5-325] 2 each PO Q4H PRN #56 tablet PRN Reason: pain Complete Home Medications List: Complete Home Medication List: Calcium Crb,Cit/D3/Min34/Hermila [Citracal + Bone Density Tablet] 1 ea PO DAILY 05/15/17 Cholecalciferol (Vitamin D3) [Vitamin D3] 1,000 unit PO DAILY 05/15/17 Citalopram Hydrobromide [Celexa] 20 mg PO DAILY 05/15/17 Clonidine HCl [Catapres] 0.1 mg PO DAILY 05/15/17 Fexofenadine/Pseudoephedrine [Nicolle-D 24 Hour Tablet] 1 ea PO DAILY 05/15/17 Levothyroxine Sodium [Synthroid] 175 mcg PO DAILY 05/15/17 Liothyronine Sodium 20 mcg PO DAILY 05/15/17 Multivitamins [Multivitamin Genevieve] 1 cap PO DAILY 05/15/17 Enoxaparin Sodium [Lovenox] 40 mg SC Q24H #5 disp.syrin 05/22/19 HYDROcodone/ACETAMINOPHEN [Elbridge 5-325] 1 - 2 tab PO Q6H PRN #56 tab 05/22/19 HYDROcodone/ACETAMINOPHEN [Elbridge 5-325] 2 ea PO Q4H PRN #56 tab 05/22/19 Morphine Sulfate [Ms Contin] 15 mg PO BID #14 tab 05/22/19 Morphine Sulfate [Ms Contin] 15 mg PO Q12H #14 tablet.sa 05/22/19 Sennosides/Docusate Sodium [Senokot-S] 2 tab PO HS #30 tab 05/22/19 Amb Orders for Discharge: PT Evaluation and Treatment* Facility: [facility], Location: Rehabilitation Services
[2019-05-22 16:51] VITALS: BP 128/74
== END 2019-05-22 17:00 | disposition home or self-care (01) | DRG 462 ==
LOC: MS 08:29 → EDSTATUS 09:30
PROVIDERS: ADMIT Orthopaedic Surgery; ATTEND Orthopaedic Surgery
CPT/HCPCS: 36415; 73560; 80048; 85027; 97110; 97116; 97161; 97164; 97165; 97530; 97535; J2405